=== PATIENT | female | born 2000 | race Caucasian/White ===

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

== ENCOUNTER 2019-01-18 20:40 | Emergency (ER) | payer OTHER ==
[~2019-01-18] VITALS: Ht 167.6 cm; Wt 72.6 kg
[~2019-01-18 20:40] MED LIST changes: +ALBU8.5H8 INH; +CYCL5TAB PO; +DICL100G37 TOP; +HYDR-842 PO; +IBUP-1542 PO; +IBUP800T48 PO
[2019-01-18 20:48] VITALS: BP 122/70; PULSE 85; RESP 18; Ht 167.6 cm; Wt 72.6 kg
--- NOTE | 2019-01-19 17:08 | ERD ---
ER Documentation Chief Complaint Chief Complaint epigastric pain x 3 days HPI 18yo F presents with complaint of chest pain x 3 days located to the sternum. Pt notes intermittent SOB, but at this time denies current SOB. She notes recent increased stress/anxiety, as well as heavy lifting which she is unsure if relate d to her symptoms. She denies cardiac hx, no hemoptysis, no recent long distance travel. Admits to hormone use with Nexplanon implant. She notes pain is intermittent and has not taken any medication for her pain. No vomiting, dizziness, sweating, or abdominal pain. ROS All systems reviewed and are negative except as per history of present illness. Medications Home Meds Active Scripts Hydroxyzine Hcl* (Atarax*) 25 Mg Tab, 25 MG PO Q6H PRN for ANXIETY, #10 TAB Prov:MARIOLA QUIÑONEZ PA-C 01/18/19 Ibuprofen* (Motrin*) 600 Mg Tab, 600 MG PO Q6H PRN for PAIN AND OR ELEVATED TEMP, #30 TAB Prov:MARIOLA QUIÑONEZ PA-C 01/18/19 Cyclobenzaprine Hcl* (Cyclobenzaprine Hcl*) 5 Mg Tablet, 5 MG PO TID, #8 TAB Prov:NINA LIMON PA-C 05/22/18 Diclofenac Sodium* (Voltaren* Gel) 1% -100 Gm Gel, 2 GM TOP QID, #1 TUB Prov:NINA LIMON PA-C 05/22/18 Ibuprofen* (Motrin*) 800 Mg Tab, 800 MG PO Q6, #30 TAB Prov:NINA LIMON PA-C 05/22/18 Albuterol Sulfate* (Proair HFA*) 8.5 Gm Hfa.aer.ad, 2 PUFF INH Q4, #1 INHALER Prov:JANICE DIALLO PA-C 05/15/17 Ibuprofen* (Motrin*) 600 Mg Tab, 600 MG PO Q6, #30 TAB Prov:JANICE DIALLO PA-C 05/15/17 Reported Medications Vit-Iron Fumarate-FA ( Tablet) 1 Each Tablet, 1 TAB PO DAILY, TAB 11/15/15 Allergies Allergies: Coded Allergies: No Known Allergy (Unverified , 05/15/17) PMhx/Soc Medical and Surgical Hx: pt denies Surgical Hx Hx Respiratory Disorders: Yes (asthma) Hx Alcohol Use: No Hx Substance Use: Yes (Marijuana) Hx Tobacco Use: No Smoking Status: Never smoker Physical Exam Vitals Vital Signs Date Temp Pulse Resp B/P (MAP) Pulse Ox O2 O2 Flow FiO2 Time Delivery Rate 01/18/19 99.2 85 18 122/70 97 20:48 (87) Physical Exam Constitutional: Well developed. Well nourished. No acute distress Head/Eyes: Atraumatic. Normocephalic. PERRL. EOMI ENT: Moist mucous membranes. Voice normal. Neck: Supple. No lymphadenopathy Cardiovascular: Regular rate and rhythm. No murmurs, rubs, or gallops. Distal pulses intact Respiratory: No respiratory distress. Normal breath sounds. No wheezes, rales, or rhonchi. No reproducible chest wall tenderness. Abdominal: Soft. Non-tender. No guarding, rebound, or rigidity. Non-distended. Denies pain with palpation to the epigastrum, RUQ, and RLQ. Extremities: No edema, Full ROM Skin: Dry. No rashes. Warm Neurological: Alert and oriented X 3. Normal speech Psychiatric: Normal mood. Normal affect Results 24 hrs Laboratory Tests Test 01/18/19 22:14 POC Beta HCG, Qualitative NEGATIVE Procedures/MDM EKG: Read by Dr. Rockwell Rate/Rhythm: Sinus amelia at a rate of 58 beats per minute, otherwise normal QRS, ST, T-waves: No changes consistent w/ acute ischemia Impression: No evidence of ischemia or arrhythmia PROCEDURE: XR Chest. FINDINGS: The lungs are clear. The heart size is normal. There is no pleural effusion. There is no pneumothorax. IMPRESSION: 1. Normal chest radiograph. MDM: This is an otherwise healthy 18yo F who presents to the ED for substernal chest pain x 3 days. Pt admits to increased anxiety as well as weight lifting. Pt has no cardiac hx. VS noted. Patient is well-appearing / non-toxic. Physical exam findings unremarkable. EKG and CXR negative for acute cardiopulmonary abnormality. At this time I have low suspicion for ACS, dissection, PE, PTX or pneumonia. Patient was reassured. Patient was observed in ED and frequently reassessed. Etiology of pain is unclear. This could be musculoskeletal, costochondritis, other. Patient will be discharged home with prescription for NSAID; close follow-up with PCP/ cardiology for reassessment and out-patient stress test. Advised to return to ED for worsening pain, dyspnea, and other concerns. Pt expressed verbal understanding and agreement to treatment plan. All questions addressed and answered. Departure Diagnosis: Primary Impression: Chest pain of unknown etiology Additional Impressions: Stress Costochondritis Condition: Stable Patient Instructions: Stress Relief: Changing Your Response, Chest Pain, Uncertain Cause Referrals: [facility] YOU HAVE RECEIVED A MEDICAL SCREENING EXAM AND THE RESULTS INDICATE THAT YOU DO NOT HAVE A CONDITION THAT REQUIRES URGENT TREATMENT IN THE EMERGENCY DEPARTMENT. FURTHER EVALUATION AND TREATMENT OF YOUR CONDITION CAN WAIT UNTIL YOU ARE SEEN IN YOUR DOCTORS OFFICE WITHIN THE NEXT 1-2 DAYS. IT IS YOUR RESPONSIBILITY TO MAKE AN APPOINTMENT FOR FOLOW-UP CARE. IF YOU HAVE A PRIMARY DOCTOR --you should call your primary doctor and schedule an appointment IF YOU DO NOT HAVE A PRIMARY DOCTOR YOU CAN CALL OUR PHYSICIAN REFERRAL HOTLINE AT IF YOU CAN NOT AFFORD TO SEE A PHYSICIAN YOU CAN CHOSE FROM THE FOLLOWING [facility] [address] [facility] [address] [facility] [address] [facility] [address] [facility] [address] [facility] [facility] [facility]. [address] Additional Instructions: You were seen today in the ED for chest pain. An EKG and chest x-ray were performed and all negative. It is advised you follow-up with your PCP in the next 1-2 days for further work-up and/or management. Please return to the ED if symptoms worsen or persist. MARIOLA QUIÑONEZ PA-C Jan 19, 2019 17:08
== END 2019-01-18 23:35 | disposition home or self-care (01) ==
LOC: FTE 20:40
DX: M94.0 Chondrocostal junction syndrome [Tietze] (principal); Z73.3 Stress, not elsewhere classified
CPT/HCPCS: 71045; 81025; 93005; Z7502